=== PATIENT | female | born 1970 ===

== ENCOUNTER 2018-02-25 20:04 | Emergency (ER) | payer OTHER ==
[2018-02-25 20:13] VITALS: TEMP 99.6; O2SAT 98
[2018-02-25] MEDS ORDERED: Sodium Chloride 0.9% 1,000 ML IV SCH (21:00)
--- NOTE | 2018-02-25 21:02 | ED PDOC ---
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 Pt reports all symptoms started yesterday. She had subjective fever with chills, headaches/back aches/joint aches which then lead to nausea and several episodes of NBNB emesis. Today, she reports feeling myalgias/arthlagias as well as nausea and once again subjective fever. She denies any vomiting today. Has not been taking anything PO today due to nausea. No urinary symptoms nor diarrhea. No sick contacts. 1st episode. Denies having polyuria/polydipisa. No numbness/tingling. No surgical history. Denies ETOH/Drug/tobacco abuse. (Mike Mckinley) Supervising Attending Note - Supervising Attending Note The Documented history was done by the: Physician Tip Bander, Attending Physician The documented physical exam was done by the: Physician Tip Bander, Attending Physician The documented procedures were done by the: Physician Tip Bander, Attending Physician - Attestation: I have personally seen and examined this patient.: Yes I have fully participated in the care of the patient.: Yes I have reviewed all pertinent clinical information, including history, physical exam and plan: Yes <Gila Knutson - Last Filed: 02/26/18 00:37> Past Medical History - Medical History PMH: Diabetes Denies: Chronic Kidney Disease - Surgical History Surgical History: No Surg Hx - Family History Family History: States: Unknown Family Hx <Mike Mckinley - Last Filed: 02/25/18 23:36> Reviewed: Historical Data, Nursing Documentation, Vital Signs <Gila Knutson - Last Filed: 02/26/18 00:37> Vital Signs: Last Vital Signs Temp 99.6 F 02/25/18 20:10 Pulse 114 H 02/25/18 20:10 Resp 20 02/25/18 20:10 BP 145/66 02/25/18 20:10 Pulse Ox 98 02/25/18 23:37 - Home Medications Home Medications: Ambulatory Orders Medication Instructions Recorded Naproxen [Naprosyn] 500 mg PO BID PRN #30 tab 08/29/14 Mupirocin Calcium Cream [Bactroban] 1 appl TP BID #1 tube 07/08/16 Nitrofurantoin Macrocrystals 100 mg PO BID #14 cap 11/26/16 [Macrobid] Ciprofloxacin [Cipro] 500 mg PO BID #6 tab 12/01/16 Nitrofurantoin Macrocrystals 100 mg PO BID #14 cap 02/25/18 [Macrobid] - Allergies Allergies/Adverse Reactions: Allergies Allergy/AdvReac Type Severity Reaction Status Date / Time No Known Allergies Allergy Verified 02/25/18 20:09 Review of Systems Constitutional: Positive for: Fever, Chills, Weakness. Negative for: Sweats, Weight loss Eyes: Negative for: Vision Change ENT: Negative for: Nose Pain, Nose Discharge, Nose Congestion, Mouth Pain Cardiovascular: Negative for: Chest Pain, Palpitations, Orthopnea, Paroxysmal Noc. Dyspnea, Edema Respiratory: Negative for: Cough, Shortness of Breath, Hemoptysis, SOB with Exertion, Pleuritic Pain, Wheezing Gastrointestinal: Positive for: Nausea, Vomiting, Abdominal Pain. Negative for : Diarrhea, Constipation, Melena, Hematochezia, Hematemesis Genitourinary Female: Negative for: Dysuria, Frequency, Incontinence, Hematuria , Vaginal Discharge, Pelvic Pain Musculoskeletal: Positive for: Neck Pain, Shoulder Pain, Arm Pain, Back Pain, Leg Pain, Foot Pain Skin: Negative for: Rash, Lesions, Bruising Neurological: Positive for: Weakness. Negative for: Numbness, Incoordination, Change in Speech, Confusion, Seizures, Altered Mental Status <Mike Mckinley - Last Filed: 02/25/18 23:36> ROS Statement: Except As Marked, All Systems Reviewed And Found Negative <Gila Knutson - Last Filed: 02/26/18 00:37> Physical Exam - Reviewed Nursing Documentation Reviewed: Yes Vital Signs Reviewed: Yes - Physical Exam Appears: Positive for: Non-toxic, No Acute Distress Head Exam: Positive for: ATRAUMATIC, NORMAL INSPECTION, NORMOCEPHALIC Skin: Positive for: Warm, Dry. Negative for: Diaphoresis, Rash Eye Exam: Positive for: EOMI, PERRL. Negative for: Conjunctival injection, Scleral icterus ENT: Positive for: Pharynx Is (clear, no exudate/erythema ) Neck: Positive for: Normal, Painless ROM, Supple Cardiovascular/Chest: Positive for: Regular Rate, Rhythm, Chest Non Tender. Negative for: Edema, Gallop, JVD, Murmur, Bradycardia, Tachycardia Respiratory: Positive for: Normal Breath Sounds. Negative for: Decreased Breath Sounds, Accessory Muscle Use, Crackles, Rales, Rhonchi, Wheezing Pulses-Radial (L): 2+ Pulses-Radial (R): 2+ Gastrointestinal/Abdominal: Positive for: Normal Exam, Bowel Sounds, Soft. Negative for: Tenderness, Mass, Distended, Guarding, Rebound Lymphatic: Negative for: Adenopathy Neurologic/Psych: Positive for: Alert, correction officer reformatory II-XII, Oriented <Mike Mckinley - Last Filed: 02/25/18 23:36> - Reviewed Nursing Documentation Reviewed: Yes <Gila Knutson - Last Filed: 02/26/18 00:37> - Laboratory Results Result Diagrams: 02/25/18 21:47 02/25/18 21:47 Urine POC: Negative Urine dip results: Positive for: Nitrate - ECG O2 Sat by Pulse Oximetry: 98 - Progress Re-evaluation Time: 23:02 Condition: Re-examined, Improved <Mike Mckinley - Last Filed: 02/25/18 23:36> - Laboratory Results Result Diagrams: 02/25/18 21:47 02/25/18 21:47 <Gila Knutson A - Last Filed: 02/26/18 00:37> - Progress ED Course And Treament: gastroenteritis/flu/pancreatitis/uti/hyperglycemia accucheck CBC CMP LIPASE UDIP UPREG Toradol Zofran 1 L NS pt re-evalauted, udip + for nitrates, urine c/s ordered, started on macrobid, pt reports feeling better and would like to go home (Mike Mckinley) Disposition - Patient ED Disposition Is Patient to be Admitted: No - Disposition Disposition: Routine/Home Disposition Time: 23:37 <Mike Mckinley - Last Filed: 02/25/18 23:36> Counseled Patient/Family Regarding: Studies Performed, Diagnosis, Need For Followup <Gila Knutson - Last Filed: 02/26/18 00:37> - Clinical Impression Clinical Impression: UTI (urinary tract infection) - Disposition Referrals: [facility] [Outside] Condition: GOOD Additional Instructions: be sure to drink lots of fluids take medications as prescribed follow up with your doctor in 2-3 days monitor your blood sugars at home if symptoms return or worsen, or your blood sugar remains elevated with medications return to ED Prescriptions: Nitrofurantoin Macrocrystals [Macrobid] 100 mg PO BID #14 cap Instructions: Urinary Tract Infection, Adult (DC) Print Language: YI
[2018-02-25 21:50] LABS: BASO # 0.1 K/uL (0.0-0.2); BASO % 0.5 % (0.0-2.0); EOS % 0.1 % (0.0-4.0); HEMOGLOBIN 12.1 g/dL (12.0-16.0); LYMPH # 1.5 K/uL (1.0-4.3); LYMPH % 12.5 % (20.0-40.0); MEAN CELL VOLUME 80.1 fl (81.0-99.0); MEAN CORPUSCULAR HEMOGLOBIN 26.6 pg (27.0-31.0); MEAN CORPUSCULAR HGB CONC 33.2 g/dL (33.0-37.0); MONO % 8.2 % (0.0-10.0); NEUT # 9.3 K/uL (1.8-7.0); NEUT % 78.7 % (50.0-75.0); RBC 4.53 Mil/uL (3.80-5.20); RED CELL DISTRIBUTION WIDTH 12.7 % (11.5-14.5); WHITE BLOOD COUNT 11.8 K/uL (4.8-10.8)
[2018-02-25 21:58] LABS: ALBUMIN 3.8 g/dL (3.5-5.0); ALT/SGPT 25 U/L (9-52); AST/SGOT 22 U/L (14-36); BLOOD UREA NITROGEN 13 mg/dl (7-17); CALCIUM 8.9 mg/dL (8.4-10.2); GFR AFRICAN-AMERICAN > 60; GFR NON-AFRICAN AMERICAN > 60; LIPASE 73 U/L (23-300)
[2018-02-26 01:24] VITALS: BP 139/65; PULSE 98; RESP 17
== END 2018-02-26 00:05 | disposition home or self-care (01) ==
LOC: H.ER 20:04
DX: N39.0 Urinary tract infection, site not specified (principal); E11.9 Type 2 diabetes mellitus without complications; E78.5 Hyperlipidemia, unspecified; Z79.4 Long term (current) use of insulin
CPT/HCPCS: 80053; 81025; 82948; 83690; 85025; 87086; 87804; 96374; 99283; J1885; J7030